=== PATIENT | female | born 1985 | race Caucasian/White ===

== ENCOUNTER 2019-06-09 09:55 | Emergency (ER) | payer BC, MEDICAID, SELFPAY ==
[2019-06-09 10:10] VITALS: BP 116/92; PULSE 105; RESP 16; TEMP 36.9; O2SAT 100
--- NOTE | 2019-06-09 10:35 | ED.URI ---
HPI - URI/Sore Throat General Chief Complaint: Upper Respiratory Infection Stated Complaint: Fever/Sore Throat/Cough Time Seen by Provider: 06/09/19 10:35 Source: patient and RN notes reviewed Mode of arrival: ambulatory Limitations: no limitations History of Present Illness HPI Narrative: 34-year-old female accompanied by son presents to express care with complaints of 4 day history of sore throat, cough, ear aches, nasal drainage. Patient states that she has noted some shortness of breath with exertion, cough is productive of clear mucous. Patient states that she has not had any fevers that she is aware of, denies any generalized body aches. Patient states that she has been taking some Ibuprofen for her discomfort, requests refill on inhaler. Lungs are clear to auscultation, no wheezing noted or any tachypnea, SAO2 100% on room air. Patient states that son was diagnosed with strep pharyngitis last week. Patient admits to tobacco abuse of 1/2 ppd of cigarettes for 15 years. She states that she did get flu shot this season. MD elicited complaint: cough, sore throat, rhinorrhea and nasal congestion Pertinent past history: pneumonia and other (tobacco abuse) Onset (ago): day(s) (4) Consistency: constant Severity: moderate Pain scale (0-10): 4 Description of mucous: clear Able to tolerate fluids by mouth: Yes Exacerbating factors: swallowing Relieving factors: nothing Context: sick contacts Associated symptoms: rhinorrhea, nasal congestion, sore throat, cough, shortness of breath and ear pain Treatments prior to arrival: ibuprofen Related Data Home Medications Medication Instructions Recorded Confirmed fluoxetine [Prozac] 20 mg PO DAILY 06/09/19 06/09/19 norelgestromin-ethin.estradiol 1 patch TRANSDERMAL WEEKLY 06/09/19 06/09/19 [Xulane] Allergies Allergy/AdvReac Type Severity Reaction Status Date / Time No Known Allergies Allergy Verified 06/09/19 10:12 Review of Systems Review of Systems: Narrative: CONSTITUTIONAL: Denies fever, chills, or sweats. EYES: Denies visual changes, redness, or discharge. ENT: Positive rhinorrhea, congestion, sore throat, or otalgia. CARDIOVASCULAR: Denies chest pain, palpitations, or edema. RESPIRATORY: positive cough or dyspnea with exertion GASTROINTESTINAL: Denies abdominal pain, nausea, vomiting, or diarrhea. GENITOURINARY: Denies dysuria or hematuria. SKIN: Denies rash or itching. MUSCULOSKELETAL:States history of back pain, no joint pain, or myalgia. NEUROLOGIC: Denies headache, numbness, or weakness. PSYCHIATRIC:Positive history of anxiety or depression. All systems reviewed & are unremarkable except as noted in HPI and below PMFSH Past Medical History Medical History (Updated 06/11/19 @ 20:42 by Gila Desir NP) Anxiety and depression Back pain Hypothyroidism Pneumonia Psoriasis Sinus problem UTI (urinary tract infection) Surgical History Surgical History (Updated 06/11/19 @ 20:39 by Gila Desir NP) H/O removal of neck cyst History of appendectomy History of tubal ligation Previous section Family History Family History Other Hypertension Social History Social History (Updated 06/11/19 @ 20:40 by Gila Desir NP) Smoking packs per day: 0.5 Smoking cigarettes per day: 10.0 Years smoked: 15 Smoking pack-years: 7.50 Smoking status: Current every day smoker Alcohol intake: current Living arrangements: with family Gender identity (if verbalized by the patient): Female Comments At time of signature, agree with nursing past medical, surgical, social and family history. There is no relevant family history pertinent to the presenting complaint Exam Narrative: Exam Narrative: GENERAL: Well-appearing, well-nourished, and in no acute distress. HEAD: Normocephalic, atraumatic. EYES: PERRLA and EOMI. ENT: Nares red, clear rhinorrhea no epistaxis. Mucous membranes mois
== END 2019-06-09 11:06 | disposition home or self-care (01) ==
PROVIDERS: Emergency Provider Registered Nurse
DX: J02.9 Acute pharyngitis, unspecified (principal); Z20.818 Contact with and (suspected) exposure to other bacterial communicable diseases; J06.9 Acute upper respiratory infection, unspecified; F17.210 Nicotine dependence, cigarettes, uncomplicated; F41.9 Anxiety disorder, unspecified; F32.9 Major depressive disorder, single episode, unspecified; E03.9 Hypothyroidism, unspecified
CPT/HCPCS: 87081; 87880; 99213; G0463

== ENCOUNTER 2022-05-10 12:09 | Emergency (ER) | payer OTHER, BC, MEDICAID, SELFPAY ==
--- NOTE | ~2022-05-10 | XR_ITS ---
XR chest 2V DATE: 05/10/2022 12:36 INDICATION: Cough and congestion for 4 days. Smoker. TECHNIQUE: 2 views COMPARISON: 11/22/2018 2 view chest FINDINGS: Normal heart size. No hilar or mediastinal enlargement. No pulmonary infiltrate or consolid ation, pleural effusion or pulmonary vascular congestion or pneumothorax. IMPRESSION: No active cardiopulmonary disease Reviewed, dictated and finalized at location A. [employer]
[2022-05-10 12:15] VITALS: BP 152/89; PULSE 113; RESP 20; TEMP 37.2; O2SAT 98
--- NOTE | 2022-05-10 12:31 | ED.URI ---
HPI - URI/Sore Throat General Chief Complaint: Upper Respiratory Infection Stated Complaint: chest congestion Source: patient and RN notes reviewed History of Present Illness HPI Narrative: 36-year-old female presents to urgent care with complaints of congestion, cough, and headache. Patient reports associated chest pain with coughing and deep breathing. Patient reports associated shortness of breath. Patient states she is unable to sleep due to cough pain. Denies any fevers, vomiting, diarrhea, sore throat, or ear pain. Patient has been taking [id number] cold and medication, Mucinex, Tylenol, and ibuprofen with minimal relief. Some parts of this dictation were generated by voice recognition software and may contain typographical and/or grammatical inaccuracies. Related Data Home Medications Medication Instructions Recorded Confirmed norelgestromin 150 mcg-e.estradiol 1 patch transdermal WEEKLY 06/09/19 06/09/19 35 mcg/24 hr weekly transderm patch (Xulane) Allergies Allergy/AdvReac Type Severity Reaction Status Date / Time No Known Allergies Allergy Verified 06/09/19 10:12 Review of Systems Review of Systems: CONSTITUTIONAL: Denies fever, chills, or sweats. EYES: Denies visual changes, redness, or discharge. ENT: Reports congestion CARDIOVASCULAR: Reports chest pain with coughing and deep RESPIRATORY:Reports cough or dyspnea. GASTROINTESTINAL: Denies abdominal pain, nausea, vomiting, or diarrhea. GENITOURINARY: Denies dysuria or hematuria. SKIN: Denies rash or itching. MUSCULOSKELETAL: Denies back pain, joint pain, or myalgia. NEUROLOGIC: Reports headache [facility] Past Medical History Medical History (Updated 05/10/22 @ 13:08 by Gillian Rayo APRN) Anxiety and depression Back pain Hypothyroidism Pneumonia Psoriasis Sinus problem UTI (urinary tract infection) Surgical History Surgical History (Updated 06/11/19 @ 20:39 by Gila Desir NP) H/O removal of neck cyst History of appendectomy History of tubal ligation Previous section Family History Family History Other Hypertension Social History Social History (Updated 06/11/19 @ 20:40 by Gila Desir NP) Smoking packs per day: 0.5 Smoking cigarettes per day: 10.0 Years smoked: 15 Smoking pack-years: 7.50 Smoking status: Current every day smoker Alcohol intake: current Living arrangements: with family Gender identity (if verbalized by the patient): Female Comments At the time of my signature, I reviewed and agree with the nursing past medical, surgical, social, and family history. There is no relevant family history pertinent to the patient complaint. Exam Narrative: GENERAL: This is a well-nourished, well-developed patient, in no apparent distress. HEAD: normocephalic, atraumatic. EYES: PERRL. Sclera clear/white. Vision is grossly intact. EARS: External ears normal, auditory canals clear and without drainage, TMs normal without perforation. Hearing grossly intact. NOSE: Congestion and rhinorrhea. THROAT: Mucous membranes moist, posterior pharynx clear. NECK: Mild lymphadenopathy CARDIOVASCULAR: Regular rate and rhythm without murmurs, gallops, or rubs. RESPIRATORY: Faint wheezes noted in upper lobes GASTROINTESTINAL: Abdomen soft, non-tender, nondistended. Bowel sounds are active. No hepato-splenomegaly, or palpable masses. No guarding. SKIN: warm, intact with no suspicious lesions or rash, good texture and turgor. NEURO: awake, alert, and oriented to person, place and time. There were no obvious focal neurologic abnormalities. Course Course Level of Care: Express Care Visit Vital Signs Vital signs: Vital Signs Temperature 99.0 F 05/10/22 12:15 Pulse Rate 113 H 05/10/22 12:15 Respiratory Rate 20 05/10/22 12:15 Blood Pressure 152/89 H 05/10/22 12:15 Pulse Oximetry 98 05/10/22 12:15 Oxygen Delivery Ro
== END 2022-05-10 13:16 | disposition home or self-care (01) ==
PROVIDERS: Emergency Provider Nurse Practitioner Family
DX: J40 Bronchitis, not specified as acute or chronic (principal); J06.9 Acute upper respiratory infection, unspecified; F17.210 Nicotine dependence, cigarettes, uncomplicated; E03.9 Hypothyroidism, unspecified; L40.9 Psoriasis, unspecified
CPT/HCPCS: 71046; 99213; G0463